=== PATIENT | female | born 1955 ===

== ENCOUNTER 2023-03-07 09:13 | Outpatient (AMB) | payer MEDICARE, OTHER, SELFPAY ==
[2023-03-07 09:15] VITALS: BP 130/70; PULSE 66; TEMP 36.6; O2SAT 99
--- NOTE | 2023-03-07 09:15 | MHC.OFFWIV ---
Intake Vital Signs 03/07/23 09:15 Height 5 ft 6.5 in BP 130/70 Blood Pressure Location Lt brachial Position Sitting Pulse 66 Pulse Source Pulse Oximeter Temp 97.8 F Temp Source Oral Pulse Oximetry (%) 99 Oxygen Delivery Method Room Air Intake Visit Reasons: [employer]/ shingles Intake Note: pt is here for c/o possible shingles, chest and upper back rash 1 week Patient Tobacco Use Status: Never used Tobacco Allergies sulfamethoxazole [From Bactrim] Allergy (Mild, Verified 03/07/23 09:16) Hives trimethoprim [From Bactrim] Allergy (Mild, Verified 03/07/23 09:16) Hives HPI [employer]ST[employer]ER/ shingles HPI Details Patient is a 67-year-old female who comes to walk-in clinic complaining of rash to the anterior chest and posterior chest for about a week. She states the she was concerned that it might be shingles, as she started to feel a mildly irritated sensation a few days before the rash became apparent, and since then it has felt mildly tender, not very itchy. She states that is not very painful, and not which she thought a shingles rash would feel like . She has not had the shingles vaccine yet. She denies crusting or oozing of lesions. Her only she retained in regards to products/exposures was that she went swimming in a hotel pool recently, which she does not usually do. She denies fever or chills, malaise or myalgias, dizziness or weakness, nausea vomiting or diarrhea, rash to other areas, or other significant associated symptoms. She does have some seasonal allergies. [facility] Social History Patient Tobacco Use Status: Never used Tobacco Review of Systems Const All systems reviewed & are unremarkable except as noted in HPI and below Physical Exam Vital Signs: Last Vital Signs Temp 97.8 F 03/07/23 09:15 Pulse 66 03/07/23 09:15 BP 130/70 03/07/23 09:15 Pulse Ox 99 03/07/23 09:15 Oxygen Delivery Method Room Air 03/07/23 09:15 Const General: cooperative, healthy appearing, comfortable, no acute distress, alert, awake, Physically active and well groomed; No anxious, diaphoretic, ill appearing, intoxicated appearing, poor hygiene or tired appearing Nutritional Appearance: average body habitus Limitations: no limitations Chest Chest palpation & inspection: normal palpation of entire chest wall Resp Effort & Inspection: normal respiratory effort, able to speak in complete sentences, no audible wheezes, no cough, no grunting, not labored, no nasal flaring, no retractions and symmetric chest movement Auscultation: clear to auscultation bilaterally, no crackles, no rales, no rhonchi, no wheezes, lung sounds not diminished and No rub present Cardio Rate: regular rate Rhythm: regular rhythm Skin Other: Patient has an erythematous maculopapular rash to the anterior chest wall under her left breast, and extending around the left flank to the posterior wall and over to the right side, across the spine. 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 Due to her history of recent swimming, which is unusual for her, suggested that this might be more fungal in nature. It is not very itchy however, and while she does have a history seasonal allergies, no apparent contact dermatitis allergens. We discussed treatment options, and I advised that she start with a topical antifungal, as I suspected that this might be more fungal/yeast in nature, also due to it presenting under the left breast area mostly. While she had been worried about shingles, we discussed that that 1 week in from onset of symptoms, it would be too late for her to start an anti viral treatment for this anyway, but that she should keep the area covered and avoid contact with or immunocompromised individuals. She will discuss shingles vaccine with her primary care provider. Otherwise, she will follow up if symptoms persist or worsen, or she could see a salvationist in the meantime if needed. Medications: New clotrimazole 1% 1 appl topical BID 56.7 grams 0RF 2 weeks Coding Level of Care Code New Pt Level 4 (14010) Diagnoses Fungal dermatitis B36.9
== END 2023-03-07 10:04 | disposition home or self-care (01) ==
PROVIDERS: Visit Provider Physician Assistant Medical
DX: B36.9 Superficial mycosis, unspecified (principal)
CPT/HCPCS: 99204